=== PATIENT | male | born 2005 | race Caucasian/White ===

== ENCOUNTER 2024-10-30 19:25 | Emergency (ER) | payer OTHER, SELFPAY ==
[2024-10-30 19:35] VITALS: BP 151/74; PULSE 80; RESP 20; TEMP 37.2; O2SAT 98; BMI 21.6
--- NOTE | 2024-10-30 23:35 | ED_ITS ---
HPI - Wound/Laceration General Chief Complaint: Wound/Laceration Stated Complaint: left hand injury Time Seen by Provider: 10/30/24 22:44 Source: patient Mode of arrival: Ambulatory History of Present Illness HPI narrative: 19-year-old male cut his left middle finger with a kitchen knife accidentally, no other injuries. Can not recall date of his last tetanus. No known drug allergies. Can move finger well. Laceration through the end of the 3rd/middle left finger. Related Data Allergies Allergy/AdvReac Type Severity Reaction Status Date / Time No Known Drug Allergies Allergy Verified 10/30/24 19:35 Patient History Social History Smoking Status: Never smoker Smoking Status: Never smoker Exam Narrative Exam Narrative: GENERAL: Well-developed patient, in mild distress. HEAD: Atraumatic. Normocephalic. EYES: Pupils equal round and reactive. Extraocular motions intact. No scleral icterus. No injection or drainage. ENT: Nose without bleeding, purulent drainage. No obvious facial injuries. Airway patent. NECK: Trachea midline. Non tender CARDIOVASCULAR: Regular rate and rhythm without murmurs, gallops, or rubs. RESPIRATORY: Clear to auscultation. Breath sounds equal bilaterally. No wheezes, rales, or rhonchi. GASTROINTESTINAL: Abdomen soft, non-tender, nondistended. EXTREMITIES: No edema or joint tenderness. Small flap laceration left middle finger radial aspect adjacent to the nail. BACK: Nontender without deformity or crepitance. No flank tenderness. NEURO: AOx3. Motor functions grossly nonfocal. SKIN: No rash or erythema of visible areas Initial Vital Signs Initial Vital Signs: Vital Signs Temperature 98.9 F 10/30/24 19:35 Pulse Rate 80 10/30/24 19:35 Respiratory Rate 20 10/30/24 19:35 Blood Pressure 151/74 H 10/30/24 19:35 Pulse Oximetry 98 10/30/24 19:35 Oxygen Delivery Method Room Air 10/30/24 19:35 Procedures Laceration Repair Laceration 1: Time of procedure: 00:12 Site: upper extremity (Left periungual flap laceration middle finger radial aspect) Side (If applicable): left Size (cm): 1.0 Description: flap Depth: simple, single layer Local Anesthetic: lidocaine 1% and bupivacaine 0.25% Amount of anesthesia used (mL): 2 (Shamar digital block with good effect) Skin layer closed with: nylon Skin layer suture size: 5-0 Number of sutures: 3 Technique: simple, interrupted Course Orders Ordered: Discontinued Medications Bacitracin (Bacitracin Oint 0.9 Gm Pckt) 1 applic TOP NOW ONE Stop: 10/31/24 00:21 Last Admin: 10/31/24 00:23 Dose: 1 applic Documented By: ALEXSANDER Diphtheria/Tetanus/Acell Pertussis (Tet,Diph,Pertuss(Acell),Vac/Pf 0.5 Ml Syringe) 0.5 ml IM .ONCE ONE Stop: 10/30/24 23:42 Last Admin: 10/31/24 00:18 Dose: 0.5 ml Documented By: ALEXSANDER Vital Signs Vital signs: Vital Signs - 8 hr 10/31/24 00:30 Pulse Rate 78 Respiratory Rate 18 Blood Pressure 119/68 Pulse Oximetry 98 MDM - Wound/Laceration MDM Narrative Medical decision making narrative: Left distal finger flap laceration, likely amenable to small tacked down stitch. We discussed driving a needle through the nail to secure that way, declines. No subungual hematoma regarding trephination at this time. Neuro x-ray ind icated. Tetanus updated. Single stitch tacked down applied. Wound irrigated by nursing with saline after shamar digital block lidocaine. Wound check advised next couple of days. Discharge Plan Departure Patient Disposition: Home Clinical Impression: Finger laceration Instructions: DI for Minor Laceration Activity Restrictions/Additional Instructions: Flap laceration distal left middle fingertip. Small laceration component to the nailbed. We did discuss driving a suture through the nailbed out through the flap, declined. Tacked down sutures were placed to secure the flap after wound irrigation cleaning. Wound check advised in the next 2 days with walk-in clinic. Return earlier to this/nearest emergency department for any change worsening symptoms or any concerns prior. Tetanus was also updated. Stand Alone Forms: Patient Portal/API
[2024-10-31] MEDS: TET,DIPH,PERTUSS(ACELL),VAC/PF 0.5 ML SYRINGE IM (00:18)
[2024-10-31] MEDS: BACITRACIN OINT 0.9 GM PCKT 1 APPLIC TOP (00:23)
--- NOTE | 2024-10-31 00:29 | PC.NURSE ---
Wound covered in Bacitracin, non-adherent pad, and aluminum splint for pt comfort.
[2024-10-31 00:30] VITALS: BP 119/68; PULSE 78; RESP 18; O2SAT 98
== END 2024-10-31 00:33 | disposition home or self-care (01) ==
PROVIDERS: Emergency Provider Emergency Medicine
DX: S61.213A Laceration without foreign body of left middle finger without damage to nail, initial encounter (principal); W26.0XXA Contact with knife, initial encounter; Z23 Encounter for immunization
CPT/HCPCS: 12001; 90471; 99283; 90715